=== PATIENT | female | born 1980 | race Caucasian/White ===

== ENCOUNTER 2016-07-02 10:56 | Emergency (ER) | payer OTHER ==
[~2016-07-02] VITALS: Ht 162.6 cm; Wt 88.0 kg
[2016-07-02 11:55] VITALS: BP 120/82
== END 2016-07-02 11:55 | disposition home or self-care (01) ==
LOC: ED 10:56
DX: N93.8 Other specified abnormal uterine and vaginal bleeding (principal); N39.0 Urinary tract infection, site not specified; Z88.6 Allergy status to analgesic agent